=== PATIENT | male | born 1975 | race Caucasian/White ===

== ENCOUNTER 2023-11-23 14:17 | Emergency (ER) | payer MEDICAID ==
[~2023-11-23] VITALS: Ht 170.2 cm; Wt 77.6 kg
[~2023-11-23 14:17] MED LIST: FLUT250M2 INH; LEVO500T31 PO; LORA-483 PO; TIOTCAP IN
[2023-11-23 15:20] VITALS: BP 130/82; PULSE 82; RESP 16; TEMP 98; O2SAT 98
[2023-11-23] MEDS: LIDOCAINE 1% HCL (LOCAL ANESTH.) INJ 20ML MDV IJ ONE (15:39)
[2023-11-23] MEDS ORDERED: IBUP-1456 PO (16:24)
[2023-11-23] MEDS ORDERED: CEPH500C PO (16:24)
[2023-11-23] MEDS ORDERED: BACL10TA PO (16:35)
[2023-11-23] MEDS ORDERED: ACET-1080 PO (16:35)
== END 2023-11-23 16:35 | disposition home or self-care (01) ==
LOC: ER 14:17
DX: S61.217A Laceration without foreign body of left little finger without damage to nail, initial encounter (principal); S39.012A Strain of muscle, fascia and tendon of lower back, initial encounter; S83.8X2A Sprain of other specified parts of left knee, initial encounter; J45.909 Unspecified asthma, uncomplicated; Z88.0 Allergy status to penicillin; Z88.6 Allergy status to analgesic agent; Z79.899 Other long term (current) drug therapy; V49.88XA Car occupant (driver) (passenger) injured in other specified transport accidents, initial encounter; Y93.I9 Activity, other involving external motion; Y92.89 Other specified places as the place of occurrence of the external cause; Y99.8 Other external cause status
CPT/HCPCS: 12002; 72100; 73562; 99284; J2001